=== PATIENT | female | born 1980 | race Caucasian/White ===

== ENCOUNTER 2020-02-04 16:28 | Emergency (ER) | payer BC, OTHER ==
[~2020-02-04] VITALS: Ht 172 cm; Wt 87.5 kg
[2020-02-04 16:35] VITALS: BP 130/78
--- NOTE | 2020-02-04 16:49 | ED Upper Extremity ---
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 Nursing Sepsis Screen: No Definite Risk Source: patient Exam Limitations: no limitations History of Present Illness Date Seen by Provider: Feb 04, 2020 Time Seen by Provider: 16:47 Initial Comments To ER with left Distal forearm/wrist pain after falling, missing a few steps going down some stairs at home. Onset: just prior to arrival Severity: moderate Pain/Injury Location: left forearm, left wrist Method of Injury: fell Modifying Factors: Worse With Movement Allergies and Home Medications Patient Home Medication List Home Medication List Reviewed: Yes Review of Systems Constitutional: see HPI EENTM: see HPI Respiratory: no symptoms reported Cardiovascular: no symptoms reported Genitourinary: no symptoms reported Musculoskeletal: see HPI Skin: no symptoms reported Psychiatric/Neurological: No Symptoms Reported Past [id number] Hx Patient Social History Alcohol Use: Rarely Uses Recreational Drug Use: No Smoking Status: Never a Smoker Recent Foreign Travel: No Contact w/Someone Who Travel: No Recent Infectious Disease Expo: No Recent Hopitalizations: No Seasonal Allergies Seasonal Allergies: No Past Medical History Surgeries: Yes (DENTAL) Respiratory: No Cardiac: No Neurological: No Genitourinary: No Gastrointestinal: No Musculoskeletal: No Endocrine: No HEENT: No Cancer: No Psychosocial: No Integumentary: No Physical Exam Vital Signs Vital Signs - First Documented 02/04/20 16:35 Temp 37.0 Pulse 63 Resp 16 B/P (MAP) 130/78 (95) Pulse Ox 100 O2 Delivery Room Air Capillary Refill : Less Than 3 Seconds Height, Weight, BMI Height: '" Weight: lbs. oz. kg; 29.00 BMI Method: General Appearance: WD/WN, no apparent distress Neck: non-tender, full range of motion Respiratory: no respiratory distress, no accessory muscle use Elbow/Forearm: normal inspection, non-tender Wrist: Yes pain (no other symptoms), Yes soft tissue tenderness Hand: normal inspection, non-tender Neurologic/Psychiatric: alert, normal mood/affect, oriented x 3 Skin: normal color, warm/dry Progress/Results/Core Measures Results/Orders My Orders Orders - MICHAEL PARDO APRN Wrist, Left, 3 Views Or More (02/04/20 16:45) Vital Signs/I&O 02/04/20 16:35 Temp 37.0 Pulse 63 Resp 16 B/P (MAP) 130/78 (95) Pulse Ox 100 O2 Delivery Room Air Blood Pressure Mean: 95 Departure Impression Primary Impression: Left wrist sprain Qualified Codes: S63.502A - Unspecified sprain of left wrist, initial encounter Disposition: HOME, SELF-CARE Condition: Stable Departure-Patient Inst. Decision time for Depature: 16:56 Referrals: NO,LOCAL PHYSICIAN (PCP) Primary Care Physician Patient Instructions: Wrist Sprain (DC) Add. Discharge Instructions: 1. Wear the splint as needed for comfort. When the wrist is feeling better without the splint then you can leave it off. You can take it off to shower. Tylenol and Motrin for pain control. All discharge instructions reviewed with patient and/or family. Voiced understanding. MICHAEL PARDO APRN Feb 04, 2020 16:49
--- NOTE | 2020-02-04 17:05 | Diagnostic Imaging Report ---
INDICATION: Left arm pain after missing two steps and falling approximately 45 minutes prior to arrival. FINDINGS: Three views of the left wrist demonstrate normal ossification. No fracture or dislocation is present. IMPRESSION: Normal left wrist. Dictated by: Dictated on workstation # [id number]
[2020-02-04] MEDS ORDERED: IBUPROFEN 800 MG (MOTRIN) TAB PO ONE (17:15)
--- OUTSIDE RECORDS SUMMARY | 2020-02-08 17:12 | XMS REPORT | Continuity of Care Document ---
Author Organization Unknown Address Unknown Phone Unavailable Allergies Active Description Code Type Severity Reaction Onset Reported/Identified Relationship to Patient Clinical Status Yes No Known Drug Allergies [id number] Drug Allergy Unknown N/A 02/04/2020 Medications There is no data. Problems There is no data. Procedures There is no data. Results There is no data. Encounters ACCT No. Visit Date/Time Discharge Status Pt. Type Provider Facility Loc./Unit Complaint [id number] 02/04/2020 16:31:00 020 17:20:00 DIS Emergency MICHAEL PARDO APRN [facility] ER LEFT ARM INJ
== END 2020-02-04 17:20 | disposition home or self-care (01) ==
LOC: ER 16:31
DX: S63.502A Unspecified sprain of left wrist, initial encounter (principal); W10.9XXA Fall (on) (from) unspecified stairs and steps, initial encounter; Y92.009 Unspecified place in unspecified non-institutional (private) residence as the place of occurrence of the external cause
CPT/HCPCS: 73110